=== PATIENT | male | born 1980 | race American Indian/Alaskan Native ===

== ENCOUNTER 2017-05-12 17:19 | Emergency (ER) | payer OTHER ==
[~2017-05-12] VITALS: Ht 182.9 cm; Wt 149.7 kg
[~2017-05-12 17:19] MED LIST: ALEVE220 M1 PO; CYCLOBENZAPRINE10 MG PO; ETODOLAC400 MG PO; EXCEDRIN MIGRA1 EAC2 PO; IBUPROFEN600 MG PO; LANTUS SOL100 UNIT/1 SUB-Q; LANTUS100 UNIT/1 SUB-Q; METFORMIN HCL1000 MG PO; METHYLPREDNISOLO4 M1 PO; NAPROSYN500 MG PO; NEURONTIN100 MG PO; NEURONTIN300 MG PO; NORCO 5-325 TA1 EACH PO; NOVOLOG FL100 UNIT/1 SUB-Q; NOVOLOG100 UNITS/ SUB-Q; PERCOCET 10-321 EACH PO; PERCOCET 5-3251 EACH PO; SULINDAC200 MG PO; ZOFRAN ODT4 MG PO; ZOFRAN4 MG PO
[2017-05-12] MEDS ORDERED: LANTUS SOL100 UNIT/1 SUB-Q (18:59)
== END 2017-05-12 23:41 | disposition home or self-care (01) ==
LOC: ED 17:19
DX: G43.909 Migraine, unspecified, not intractable, without status migrainosus (principal); E11.9 Type 2 diabetes mellitus without complications; I10 Essential (primary) hypertension; E66.9 Obesity, unspecified; Z90.49 Acquired absence of other specified parts of digestive tract; Z90.89 Acquired absence of other organs; Z88.5 Allergy status to narcotic agent; Z79.4 Long term (current) use of insulin
CPT/HCPCS: 96361; 96374; 96375; 99282; J0780; J1885; J2405; J7030

== ENCOUNTER 2017-09-29 18:34 | Emergency (ER) | payer OTHER ==
[~2017-09-29] VITALS: Ht 182.9 cm; Wt 149.7 kg
[2017-09-29] MEDS ORDERED: AUGMENTIN 875-1 EACH PO (19:44)
[2017-09-29] MEDS ORDERED: NORCO 5-325 TA1 EACH PO (19:44)
== END 2017-09-29 20:01 | disposition home or self-care (01) ==
LOC: ED 18:34
DX: L02.31 Cutaneous abscess of buttock (principal); I10 Essential (primary) hypertension; E11.9 Type 2 diabetes mellitus without complications; E66.9 Obesity, unspecified; Z88.5 Allergy status to narcotic agent; Z79.4 Long term (current) use of insulin
CPT/HCPCS: 99283

== ENCOUNTER 2020-03-16 19:48 | Emergency (ER) | payer OTHER ==
[~2020-03-16] VITALS: Ht 182.9 cm; Wt 149.7 kg
--- OUTSIDE RECORDS SUMMARY | ~2020-03-16 | XMS | Encounter Summary ---
Demographics + + + | Address | [address] | | | [place] [address] | + + + | Home Phone | | + + + | Preferred Language | Unknown | + + + | Marital Status | Unknown | + + + | Nondenominational Affiliation | Unknown | + + + | Race | or | + + + | Ethnic Group | Not or | + + + Author + + + | Author | [facility] | | | and [place] | + + + | Organization | [facility] | | | and [place] | + + + | Address | Unknown | + + + | Phone | Unavailable | + + + Support + + +---------+ + | Name | Relationship | Address | Phone | + + +---------+ + | Laura Randhawa | ECON | Unknown | | + + +---------+ + Care Team Providers + +------+ + | Care Manager Database Name | Role | Phone | + +------+ + | Chas Rizvi PA-C | PCP | | + +------+ + Reason for Visit + +--------+ + | Reason | Onset | Comments | | | Date | | + +--------+ + | Referral | 03/08/ | | | | 2019 | | + +--------+ + Encounter Details +--------+ + + + + | Date | Type | Department | Care Team | Description | +--------+ + + + + | 03/08/ | Telephone | [facility] | Lavon Pack MD | Referral | | 2019 | | OTOLARYNGOLOGY 301 | [address] [facility] | | | | | [address] [facility] [address] | [address] [place], [place] | | | | | [place], [place] | [address] | | | | | [address] | | | | | | [phone] | | | +--------+ + + + + Social History + +-------+ +--------+ + | Tobacco Use | Types | Packs/Day | Years | Date | | | | | Used | | + +-------+ +--------+ + | Former Smoker | | | | Quit: 01/05/2017 | + +-------+ +--------+ + + +---+---+---+ | Smokeless Tobacco: | | | | | Never Used | | | | + +---+---+---+ + + +---------+ + | Alcohol Use | Drinks/Week | oz/Week | Comments | + + +---------+ + | No | | | | + + +---------+ + + + + | Sex Assigned at | Date Recorded | | | | + + + | Not on file | | + + + documented as of this encounter Miscellaneous Notes Telephone Encounter - Lexie Willard - 03/30/2019 11:38 AM PDTReceived auth# [id number] 121 valid for DOS 04/08/19 Sara. Closing encounter. elephone Encounter - Reyna Nguyen - 03/23/2019 11:45 AM PDT Jefryk called back, asked for Dr. Pack's office note DOS 03/08/19; I printed this out an d faxed it to [phone] signed by Reyna Nguyen at 03/23/2019 11:47 AM P DTTelephone Encounter - Sherif Shipman - 03/23/2019 11:13 AM PDTSecond Attempt: LVM with Corrine partida from to inform DOS 04/08/[address] Pack ENT. Will need an updated referral from p and authorization for the visit. 1 1:16 AM PDTTelephone Encounter - Sherif Shipman - 03/08/2019 2:32 PM PDTFirst Attempt: LVM with Fuad notifying of DOS 04/08/19 and that will need an update referral/request a [facility]. documented in this e ncounter Plan of Treatment Not on filedocumented as of this encounter Visit Diagnoses Not on filedocumented in this encounter"
--- OUTSIDE RECORDS SUMMARY | ~2020-03-16 | XMS | Encounter Summary ---
Demographics + + + | Address | [address] | | | [place] [address] | + + + | Home Phone | | + + + | Preferred Language | Unknown | + + + | Marital Status | Unknown | + + + | Restorationism Affiliation | Unknown | + + + | Race | or | + + + | Ethnic Group | Not or | + + + Author + + + | Author | [facility] | | | and [place] | + + + | Organization | [facility] | | | and [...] Team Providers + +------+ + | Care Engraver Optical Frames Name | Role | Phone | + +------+ + | Chas Rizvi PA-C | PCP | | + +------+ + Reason for Visit + + + | Reason | Comments | + + + | New Patient | neck swelling,been going on for about a month,pain and discomfort | | | | + + + Evaluate & Treat (Routine) +--------+--------+ + + + + | Status | Reason | Specialty | Diagnoses / | Referred By | Referred To | | | | | Procedures | Contact | Contact | +--------+--------+ + + + + | Closed | | Otolaryngolog | Diagnoses | Nayeli, | Lavon Pack | | | | y | neck | Yessica Haney, | MD [place] [address] | | | | | swelling | [place] [address] | [address] | | | | | | | [place] [address] | | | | | | [address] | [place] | | | | | | [address] | [address] Phone: | | | | | | [place], | [phone] | | | | | | [place] [address] | Fax: | | | | | | Phone: | [phone] | | | | | | [phone] | | | | | | | Fax: | | | | | | | [phone] | | +--------+--------+ + + + + Encounter Details +--------+---------+ + + + | Date | Type | Department | Care Team | Description | +--------+---------+ + + + | 03/08/ | Office | [facility] | Lavon Pack MD | Conversion disorder | | 2019 | Visit | OTOLARYNGOLOGY [address] | [address] [place] [address] | (Primary Dx) | | | | [address] [facility] [address] | [address] [place] | | | | | [place] | [address] | | | | | [address] | | | | | | [phone] | | | +--------+---------+ + + + Social History + +-------+ [...] + + documented as of this encounter Last Filed Vital Signs + + + + + | Vital Sign | Reading | Time Taken | Comments | + + + + + | Blood Pressure | - | - | | + + + + + | Pulse | 86 | 03/08/2019 1:28 PM | | | | | PDT | | + + + + + | Temperature | - | - | | + + + + + | Respiratory Rate | 16 | 03/08/2019 1:28 PM | | | | | PDT | | + + + + + | Oxygen Saturation | 99% | 03/08/2019 1:28 PM | | | | | PDT | | + + + + + | Inhaled Oxygen | - | - | | | Concentration | | | | + + + + + | Weight | 148.8 kg (328 lb) | 03/08/2019 1:28 PM | | | | | PDT | | + + + + + | Height | 185.4 cm (6' 1") | 03/08/2019 1:28 PM | | | | | PDT | | + + + + + | Body Mass Index | 43.27 | 03/08/2019 1:28 PM | | | | | PDT | | + + + + + documented in this encounter Progress Notes Lavon Pack MD - 03/08/2019 1:30 PM PDTPatient comes in because she's had problems with a tightness in the throat area for about a month. At times will be less of a problem that initially was very tight for about a week. The patient has had a CT scan through the neck a johnnie. He's not noted any change in his voice. He does occasionally gets some coughing limit s bothering him a lot and he notes that in the morning hours it often seems to be more aggra vated. He's had no change in the ability of food to go down but occasionally with the swall owing he'll do some coughing. He also indicates that when he gets severe coughing that occa sionally seen a little speck of blood with a bad cough. Examination: Patient is an alert 40-year-old patient who is communicating well on his voice quality is good. Skin of the face nose and ears all appeared to be smooth and healthy. Ea r canals are open and clean and drums are clear. No middle ear fluid or disease noted. The nasal passage he has a mild septal deviation towards the left. There is good space on the right-hand side. No mass or lesion seen on either side. The right side of the nose was the n sprayed well with some Aidan-Synephrine and topical Xylocaine. In the oral cavity no mass o r lesions are noted. In the oropharynx he's had a uvulopalatopharyngoplasty and no mass or lesions are noted. Tongue and soft palate are smooth the moves symmetrically. Neck was tho roughly examined and there is no mass or lymphadenopathy palpated. Parotid submandibular an d thyroid gland areas all felt smooth. He does have a fairly large neck. He moves his neck without any pain noted. Special procedure: The fiberoptic scope was then used to look through the right nasal passa ge. In this passage and in the nasopharyngeal area no mass or lesions are noted. Rosenmull er's fosses are open and clear and the eustachian tube openings are normal. Stereo lateral pharyngeal ding are smooth. Base of the tongue vallecula and epiglottis is no mass or lesi on or thrush noted. In the vocal cord area is very smooth and moves symmetrically. There w as no swelling over the arytenoids and appear form sinuses are open and clear. Patient has a very normal-appearing hypopharyngeal and laryngeal examination. The CT scan from [facility] was reviewed along with the radiologist reading. No mass or lesions were not ed to account for the pressure in the throat area. Impression: Conversion disorder. Plan: Patient is given a prescription for Xanax 0.25 mg to take a half a tablet in the morn ing and mid-day and a full tablet at bedtime. He will be re-seen back again in 1 month's ti me. documented in this en counter Plan of Treatment Not on filedocumented as of this encounter Visit Diagnoses + + | Diagnosis | + + | Conversion disorder - Primary | + + documented in this encounter
--- OUTSIDE RECORDS SUMMARY | ~2020-03-16 | XMS | Encounter Summary ---
Demographics + + + | Address | [address] | | | [place] [address] | + + + | Home Phone | | + + + | Preferred Language | Unknown | + + + | Marital Status | Unknown | + + + | Voodoo Affiliation | Unknown | + + + | Race | or | + + + | Ethnic Group | Not or | + + + Author + + + | Author | [facility] | | | and [place] | + + + | Organization | [facility] | | | [...] Team Providers + +------+ + | Care Card Hanger Name | Role | Phone | + +------+ + PCP | Unavailable | + +------+ + Encounter Details +--------+ + + + + | Date | Type | Department | Care Team | Description | +--------+ + + + + | 02/27/ | Hospital | [facility] | | | | 2010 | Encounter | [facility] | | | | | | [address] [address] | | | | | | [place] | | | | | | [phone] | | | | | | [phone] | | | +--------+ + + + + Social History + +-------+ +--------+------+ | Tobacco Use | Types | Packs/Day | Years | Date | | | | | Used | | + +-------+ +--------+------+ | Never Assessed | | | | | + +-------+ +--------+------+ + + + | Sex Assigned at | Date Recorded | | | | + + + | Not on file | | + + + documented as of this encounter ED Notes Zane Zacarias MD - 02/27/2011 6:24 PM PDTDATE: 02/27/2011 CHIEF COMPLAINT: Shortness of breath. HISTORY OF PRESENT ILLNESS: The patient is a 30-year-old complaining of shortness of breat h. This hartmann s been ongoing for the last 24 hours, but he has had previous episodes intermitt ently for the past 5 years where he developed some midsternal chest pain with it. He has be en lightheaded, had some near-s yncope type symptoms. He has had generalized fatigue. He hartmann s not been feeling well. He has had a ani le cough but no wheezing. He has not had pleurit ic pain. He has not had hemoptysis, hematemesis. No a bdominal pain. No specific weakness b ut has had generalized weakness. He was seen at [facility], had an evaluation. Was seen in [place] emergency department, had an evaluation, and then came u p here for furt her evaluation, as they did not have a satisfying diagnosis for him. He has not had ni ght sweats. He has not had any weight loss. He has been able to eat and drink. He has not been a nxiou s, no panic. PAST MEDICAL HISTORY: History of pneumonia, history of pericarditis. He has had a cholecys tectomy, t onsillectomy, sinus surgery, diabetes. ALLERGIES: MORPHINE. MEDICATIONS: None. SOCIAL HISTORY: He occasionally smokes. REVIEW OF SYSTEMS: As per HPI. Other systems negative. PHYSICAL EXAM VITAL SIGNS: He is afebrile. Respiratory rate 28, heart rate 88, BP 149/79, O2 saturation 99%. GENERAL: He is alert, oriented. Appears nontoxic. HEENT: Normocephalic, atraumatic. Mucous membranes moist. Oropharynx clear. NECK: Without any meningismus. CARDIOVASCULAR: Regular rate. No murmur, rub, or gallop. PULMONARY: Clear to auscultation. No wheeze, rhonchi, tachypnea, or respiratory distress o n my exami nation. ABDOMEN: Soft and nontender. NEUROLOGIC: Grossly intact. No focal deficit. EMERGENCY DEPARTMENT COURSE: We did go ahead and do a troponin here, which was negative. A 12-lead E KG tracing, normal sinus rhythm, 83 beats per minute, no acute abnormality. He r eceived Zofran, as he developed some nausea here. They were concerned about a possible PE. We did a CT scan of the chest w ith IV contrast, did not reveal acute PE, maybe some medias tinal lymphadenopathy, although mild accor ding to the report. The patient had an extensive evaluation done at [place]. I reviewed those labs, including BNP, electrolytes, CBC, and did not appear to have acute abnormality on that. His 12-lead EKG tracing did not change. At this point, it is unclear the etiology of this. He may have some pulmo nary hypertension versus possible other cardiac cause, although his BNP was [facility] at the [facility], making this less likely a source at this point. I do think he needs to continue to f oll ow up. They did discuss the possibility of an echocardiogram, which seems like a reason able next step given his symptoms here. Otherwise, continued observation. He is not hypoxic , not in respiratory dis tress currently. DIAGNOSES 1. DYSPNEA. 2. NAUSEA. DISPOSITION: Patient discharged home. Rest and fluids. Follow up with his family doctor as planned. Return for worsening symptoms, other complaints. DICTATED BY: Zane Zacarias MD Emergency Medicine JOB #: [id number] EXT JOB #:[id number] <Electronicall y Signed by Zane Zacarias MD> 02/28/11 1602 documented in this encounter Plan of Treatment Not on filedocumented as of this encounter Procedures + +--------+ + + + | Procedure Name | Priori | Date/Time | Associated Diagnosis | Comments | | | ty | | | | + +--------+ + + + | TROPONIN I | Routin | 02/27/2011 | | Results for this | | | e | 7:30 PM | | procedure are in the | | | | PDT | | results section. | + +--------+ + + + | CT CHEST W CONTRAST | | 02/27/2011 | | Results for this | | | | 6:24 PM | | procedure are in the | | | | PDT | | results section. | + +--------+ + + + documented in this encounter Results Troponin I (02/27/2011 7:30 PM PDT) + + + + + + | Component | Value | Ref Range | Performed | Pathologist | | | | | At | Signature | + + + + + + | Troponin I | 0.01Comment: Reference | <0.10 ng/mL | [facility] | | | | Ranges: | | [facility] | | | | 0.00-0.09 = NORMAL | | MEDICAL | | | | 0.10-0.50 | | CENTER - | | | | = | | LABORATORY | | | | INDETERMINATE-SUSPICIOUS | | | | | | FOR | | | | | | | | | | | | NON-INFARCT | | | | | | MYOCARDIAL INJURY | | | | | | >0.50 = | | | | | | CONSISTENT WITH | | | | | | MYOCARDIAL INFARCT | | | | | | Results in the | | | | | | Indeterminate range can | | | | | | reflect a pre-infarct | | | | | | acute coronary | | | | | | syndrome, but can also | | | | | | reflect myocardial | | | | | | necrosis or injury | | | | | | that is not due to | | | | | | coronary artery | | | | | | disease. Some of these | | | | | | causes are sepsis, | | | | | | hypocolemia, atrial | | | | | | fibrillation, heart | | | | | | failure, pulmonary | | | | | | embolism, myocarditis, | | | | | | myocardial contusion, | | | | | | and renal failure. | | | | | | Testing performed on | | | | | | the [employer] [place] | | | | | | Access Analyzer. | | | | + + + + + + + + | Specimen | + + | | + + + + + + + | Performing | Address | City/State/Zipcode | Phone Number | | Organization | | | | + + + + + | [facility] | [address] | [place], [place] | [phone] | | [facility] | | [address] | | | - LABORATORY | | | | + + + + + | [facility] | [address] | [place], [place] | | | [facility] | | [address], [facility] | | | - LABORATORY | | | | + + + + + CT Chest w Contrast (02/27/2011 6:24 PM PDT) + + | Specimen | + + | | + + + + + | Narrative | Performed At | + + + | [facility] Diagnostic Imaging Department | [facility] | | [address], [facility] | [facility] | | CHEST CT WITH CONTRAST, 1930 | DIAG IMG | | HOURS, 02/27/2011 CLINICAL HISTORY: PULMONARY EMBOLISM. | | | FINDINGS: There is suboptimal contrast opacification of the | | | pulmonary arterial tree secondary to mis timing of the bolus. There | | | are no definite filling defects within the large or medium-sized | | | pulmonary vessels. Small emboli could be missed. There are a | | | few scattered shotty mediastinal lymph nodes, none reaching pathologic | | | size criteria. The re is no pleural or pericardial effusion. The | | | pulmonary parenchyma is clear. Partially imaged upper a bdominal | | | structures are unremarkable. IMPRESSION: 1. TECHNICALLY | | | SUBOPTIMAL STUDY, WITH NO DEFINITE FINDING OF SIGNIFICANT PULMONARY | | | THROMBOEMBOLISM. 2. NONSPECIFIC SHOTTY MEDIASTINAL LYMPH NODES. | | | Dictated Date/Time: 02/28/2011 13:07 Transcribed Date/Time: | | | 02/28/2011 14:04 Coding Tech: <Electronically Signed | | | by Andrez Adair MD> 02/28/111925 | | + + + + + | Procedure Note | + + | Curtis, Rad Conversion - 09/03/2013 3:31 PM [facility] | | Diagnostic Imaging Department [address] [facility] | | CHEST CT WITH CONTRAST, 1930 HOURS, 02/27/2011 CLINICAL | | HISTORY: PULMONARY EMBOLISM. FINDINGS: There is suboptimal contrast opacification of | | the pulmonary arterial tree secondary to mistiming of the bolus. There are no definite | | filling defects within the large or medium-sized pulmonary vessels. Small emboli could | | be missed. There are a few scattered shotty mediastinal lymph nodes, none reaching | | pathologic size criteria. There is no pleural or pericardial effusion. The pulmonary | | parenchyma is clear. Partially imaged upper abdominal structures are unremarkable. | | IMPRESSION: 1. TECHNICALLY SUBOPTIMAL STUDY, WITH NO DEFINITE FINDING OF SIGNIFICANT | | PULMONARY THROMBOEMBOLISM. 2. NONSPECIFIC SHOTTY MEDIASTINAL LYMPH NODES. Dictated | | Date/Time: 02/28/2011 13:07Transcribed Date/Time: 02/28/2011 14:04Transcriptionist: | | <Electronically Signed by Andrez Adair MD> 02/28/111925 | | | |There are a few scattered shotty mediastinal lymph nodes, none reaching pathologic size cri teria. The | |re is no pleural or pericardial effusion. The pulmonary parenchyma is clear. Partially imag ed upper a | |bdominal structures are unremarkable. | | | |IMPRESSION: | |1. TECHNICALLY SUBOPTIMAL STUDY, WITH NO DEFINITE FINDING OF SIGNIFICANT PULMONARY THROMBOE MBOLISM. | | | |2. NONSPECIFIC SHOTTY MEDIASTINAL LYMPH NODES. | | | |Dictated Date/Time: 02/28/2011 13:07 | |Transcribed Date/Time: 02/28/2011 14:04 | |Coding Tech: | |<Electronically Signed by Andrez Adair MD> 02/28/111925 | + + + +---------+ + + | Performing | Address | City/State/Zipcode | Phone Number | | Organization | | | | + +---------+ + + | [place] | | | | | [employer] [facility] | | | | + +---------+ + + documented in this encounter Visit Diagnoses Not on filedocumented in this encounter"
--- OUTSIDE RECORDS SUMMARY | ~2020-03-16 | XMS | Encounter Summary ---
Demographics + + + | Address | [address] | | | [place] [address] | + + + | Home Phone [...] Author + + + | Author | [facility] | | | and [place] | + + + | Organization | [facility] | | | [...] Team Providers + +------+ + | Care Director Patient Financial Services Name | Role | Phone | + +------+ + | Chas Rizvi PA-C | PCP | | + +------+ + Reason for Referral Diagnostic/Screening (Routine) +--------+--------+ + + + + | Status | Reason | Specialty | Diagnoses / | Referred By | Referred To | | | | | Procedures | Contact | Contact | +--------+--------+ + + + + | Closed | | Radiology | Diagnoses | Maxood, | [facility] | | | | | Chest pain, | Hubert | Medicine | | | | | unspecified | MD Rajesh | [address] | | | | | type | [address] | [place], | | | | | Procedures | [place] | [place] | | | | | [place] [facility] | [place], [place] | [address] | | | | | Stress Test | [address] | Phone: | | | | | (Vasodilator | Phone: | [phone] | | | | | ) | [phone] | Fax: | | | | | | Fax: | [phone] | | | | | | [phone] | | +--------+--------+ + + + + Reason for Visit + + + | Reason | Comments | + + + | Follow-up | | + + + Evaluate & Treat (Routine) +--------+--------+ + + + + | Status | Reason | Specialty | Diagnoses / | Referred By | Referred To | | | | | Procedures | Contact | Contact | +--------+--------+ + + + + | Closed | | Cardiology | Diagnoses | Nayeli, | Breonna, | | | | | Chest pain, | Yessica Haney, | Hubert | | | | | unspecified | PA-C [address] | MD Rajesh | | | | | Wheezing | | [address] | | | | | Procedures | [address] | [place] | | | | | [address] | [address] | [place], [place] | | | | | | [place], | [address] Phone: | | | | | | [place] [address] | [phone] | | | | | | Phone: | Fax: | | | | | | [phone] | [phone] | | | | | | Fax: | | | | | | | [phone] | | +--------+--------+ + + + + Encounter Details +--------+---------+ + + + | Date | Type | Department | Care Team | Description | +--------+---------+ + + + | 01/05/ | Office | [facility] | Hubert Light | Chest pain, | | 2018 | Visit | CARDIOLOGY [address] | MD Rajesh [address] | unspecified type | | | | [address] [place], | [address] [place] | (Primary Dx); | | | | [place] [address] | [place] [address] | Hypertension, | | | | [phone] | [phone] | unspecified type; | | | | | | Palpitations; SOB | | | | | | (shortness of | | | | | | breath); Ventricular | | | | | | hypertrophy; | | | | | | Cardiomegaly | +--------+---------+ + + + Social History [...] + + + | Blood Pressure | 132/90 | 01/05/2018 1:27 PM | | | | | PDT | | + + + + + | Pulse | 88 | 01/05/2018 1:27 PM | | | | | PDT | | + + + + + | Temperature | - | - | | + + + + + | Respiratory Rate | 18 | 01/05/2018 1:27 PM | | | | | PDT | | + + + + + | Oxygen Saturation | - | - | | + + + + + | Inhaled Oxygen | - | - | | | Concentration | | | | + + + + + | Weight | 149.5 kg (329 lb 9.4 | 01/05/2018 1:27 PM | | | | oz) | PDT | | + + + + + | Height | 185.4 cm (6' 1") | 01/05/2018 1:27 PM | | | | | PDT | | + + + + + | Body Mass Index | 43.48 | 01/05/2018 1:27 PM | | | | | PDT | | + + + + + documented in this encounter Patient Instructions Patient Instructions Carolyn Marina RN - 01/05/2018 1:30 PM PDT Artie/Shruthi Myojuvenal Date: Check-in Time: Where to Check In: Instructions 1. Nothing to eat or drink anything 6 hours prior to Persantine/Lexiscan 2. DO NOT drink caffeine 12 hours prior to the test. 3. You can take all medications the morning of the test with a small sip of water. 4. Please bring a list of your current medications with you. Resting Portion of test: Date: Check-in Time: Where to Check In: Follow up appointment: 2-3 months Provider: Daniel Light MD Date: Check-In Time: documented in this encounter Progress Notes Hubert Light MD - 01/05/2018 1:30 PM PDTFormatting of this note might be differe nt from the original. PATIENT NAME: Cesar Randhawa : 1980: AGE: 37 y.o. REFERRED BY: Yessica Tyler PRIMARY CARE: Chas Rizvi PA-C CARDIOLOGY OFFICE VISIT Date of Service: 01/05/18 HISTORY OF PRESENT ILLNESS: Cesar Randhawa is a 37 y.o. male with a history of Diabetes an atypical chest pain. He is being seen today for further consultation. He is referred by Yessica Tyler for further evaluation after recent complaints of aty pical chest discomfort, described as sharp without clear exertional correlation. He has had similar symptoms in the past and previously underwent a stress perfusion imaging study which was low risk.he only takesinsulin 4 diabetes which has been poorly controlled.he describes not tolerating metformin in the past given onset of dizziness/lightheadedness. He has not b een on aspirin therapy, statin therapy, or MINH inhibitor therapy. He denies problems such as orthopnea, PND, or lower extremity edema, or any palpitations, l ightheadedness, or syncope. He has had no constitutional symptoms. MEDICAL, SURGICAL, AND PERSONAL HISTORY Past Medical History: Diagnosis Date Allergic rhinitis Asthma Cardiomegaly Chest pain Chronic low back pain Diplopia High blood pressure Hip pain Malaise and fatigue Morbid obesity (HCC) Palpitations SOB (shortness of breath) Type 2 diabetes mellitus (HCC) Ventricular hypertrophy Vitamin D deficiency Past Surgical History: Procedure Laterality Date APPENDECTOMY CHOLECYSTECTOMY NASAL SINUS SURGERY Family History Problem Relation Age of Onset Diabetes Mother Hypertension Mother Family Status Relation Status Mother Alive Father Alive Social History Social History Marital status: Unknown Spouse name: N/A Number of children: N/A Years of education: N/A Social History Main Topics Smoking status: Former Smoker Quit date: 01/05/2017 Smokeless tobacco: Never Used Alcohol use No Drug use: Yes Types: Marijuana Sexual activity: Not Asked Other Topics Concern None Social History Narrative None CURRENT MEDICATIONS Current Outpatient Prescriptions Medication Sig Dispense Refill insulin glargine (LANTUS SOLOSTAR) 100 units/mL injection (pen) Inject 70 Units under t he skin Daily. No current facility-administered medications for this visit. ALLERGIES Allergies Allergen Reactions Morphine Itching Anesthetics, Amide NOVACAINE Iodinated Diagnostic Agents Nausea And Vomiting ROS I have reviewed the Review of Systems form dated today and scanned into the media tab. OBJECTIVE: PHYSICAL EXAM BP 132/90 | Pulse 88 | Resp 18 | Ht 1.854 m (6' 1") | Wt (!) 149.5 kg (329 lb 9.4 oz) | BMI 43.48 kg/m Physical Exam Constitutional: He is oriented to person, place, and time. He appears well-developed and we ll-nourished. HENT: Head: Normocephalic. Eyes: No scleral icterus. Neck: Normal carotid pulses and no JVD present. Carotid bruit is not present. Cardiovascular: Normal rate, regular rhythm, S1 normal, S2 normal, normal heart sounds, int act distal pulses and normal pulses. PMI is not displaced. Exam reveals no gallop and no m idsystolic click. No murmur heard. Pulses: Carotid pulses are 2+ on the right side, and 2+ on the left side. Femoral pulses are 2+ on the right side, and 2+ on the left side. Dorsalis pedis pulses are 2+ on the right side, and 2+ on the left side. Posterior tibial pulses are 2+ on the right side, and 2+ on the left side. Pulmonary/Chest: Effort normal and breath sounds normal. No accessory muscle usage. No resp iratory distress. He has no wheezes. He has no rhonchi. He has no rales. Abdominal: Soft. Normal aorta and bowel sounds are normal. He exhibits no abdominal bruit. There is no hepatosplenomegaly. There is no tenderness. Obese. Musculoskeletal: He exhibits no edema. Neurological: He is alert and oriented to person, place, and time. Gait normal. Skin: Skin is warm and dry. No cyanosis. Nails show no clubbing. Psychiatric: He has a normal mood and affect. His mood appears not anxious. He does not exh ibit a depressed mood. Vitals reviewed. ECG: Reviewed by me today notable for normal sinus rhythm, heart rate 87. LAB RESULTS: LIPID Lab Results Component Value Date LDLEX 61.8 10/01/2017 HDLEX 40 10/01/2017 TRIGEX 237 (A) 10/01/2017 CHOLEX 149 10/01/2017 CHEMISTRY No results found for: GLU, NA, K, CL, CO2, CALCIUM, ALKPHOS, AST, ALT, BILITOT, CREA, BUN, EGFR, EGFREX, CREEX HEMATOLOGY No results found for: WBC, HGB, HCT, PLT, HGBEX BNP No results found for: BNP A1C 10/01/2017: 9.8 I reviewed records from PCP for office visit on 11/05/17 as well as 11/29/13 as well as [facility] emergency department visit 02/27/11. Nuclear stress perfusion imaging study December 2013 results reviewed by me with the patient to day notable for no perfusion abnormalities, low risk study. ASSESSMENT: 1. Atypical chest pain - Patient's symptoms are certainly atypical for coronary ischemia . However, given his history of poorly controlled diabetes, I will have him undergo a repea t pharmacologic stress perfusion imaging study. He would also benefit from empiric therapy with low-dose aspirin given his history of diabetes. 2. Diabetes mellitus - Patient demonstrates very poor control and would benefit from add itional therapy with an oral hypoglycemic agent in addition to consideration of therapy with an MINH inhibitor versus ARB. As stated above, he should also be treated with aspirin empir ically. PLAN: 1. Stress perfusion imaging study. 2. Additional therapy with aspirin. 3. Consider additional therapy with oral hypoglycemic agent and MINH inhibitor versus ARB. 4. Lifestyle and dietary modification. 5. Follow-up visit in a few weeks. Portions of this report were transcribed using voice recognition software. Every effort wa s made to ensure accuracy; however, inadvertent computerized wireline supervisor errors may be pre sent. Electronically signed by: Raymond Light MD PhD FACC 01/05/2018 documented in t his encounter Plan of Treatment + + +--------+ + + | Name | Type | Priori | Associated Diagnoses | Order Schedule | | | | ty | | | + + +--------+ + + | [place] Nuclear Stress | Cardiac | Routin | Chest Pain, | Expected: | | Test (Vasodilator) | Nuclear | e | Unspecified Type | 01/05/2018, Expires: | | | Medicine | | | 01/05/2019 | + + +--------+ + + documented as of this encounter Procedures + +--------+ + + + | Procedure Name | Priori | Date/Time | Associated Diagnosis | Comments | | | ty | | | | + +--------+ + + + | ECG 12 LEAD | Routin | 01/06/2018 | Chest pain, | Results for this | | | e | 6:29 PM | unspecified type | procedure are in the | | | | PDT | Hypertension, | results section. | | | | | unspecified type | | | | | | Palpitations SOB | | | | | | (shortness of | | | | | | breath) Ventricular | | | | | | hypertrophy | | | | | | Cardiomegaly | | + +--------+ + + + | EXTERNAL LAB: | Routin | 10/01/2017 | | Results for this | | TRIGLYCERIDES | e | | | procedure are in the | | | | | | results section. | + +--------+ + + + | EXTERNAL LAB: | Routin | 10/01/2017 | | Results for this | | CHOLESTEROL, HDL | e | | | procedure are in the | | | | | | results section. | + +--------+ + + + | EXTERNAL LAB: | Routin | 10/01/2017 | | Results for this | | CHOLESTEROL, TOTAL | e | | | procedure are in the | | | | | | results section. | + +--------+ + + + | EXTERNAL LAB: | Routin | 10/01/2017 | | Results for this | | CHOLESTEROL, LDL | e | | | procedure are in the | | | | | | results section. | + +--------+ + + + | HEMOGLOBIN A1C | Routin | 10/01/2017 | | Results for this | | | e | | | procedure are in the | | | | | | results section. | + +--------+ + + + documented in this encounter Results ECG 12 lead (01/06/2018 6:29 PM PDT) + + + + + + | Component | Value | Ref Range | Performed | Pathologist | | | | | At | Signature | + + + + + + | VENTRICULAR | 87 | BPM | [facility] | | | RATE EKG | | | | | + + + + + + | ATRIAL RATE | 87 | BPM | [facility] | | + + + + + + | P-R | 142 | ms | [facility] | | | INTERVAL | | | | | + + + + + + | QRS | 98 | ms | [facility] | | | DURATION | | | | | + + + + + + | Q-T | 356 | ms | [facility] | | | INTERVAL | | | | | + + + + + + | Q-T | 428 | ms | [facility] | | | INTERVAL | | | | | | (CORRECTED) | | | | | + + + + + + | P WAVE AXIS | 25 | degrees | [facility] | | + + + + + + | QRS AXIS | 74 | degrees | [facility] | | + + + + + + | T AXIS | 12 | degrees | [facility] | | + + + + + + | INTERPRETAT | Normal sinus | | [facility] | | | ION TEXT | rhythmPossible Inferior | | | | | | infarct , age | | | | | | undeterminedAbnormal | | | | | | ECGNo previous ECGs | | | | | | availableConfirmed by | | | | | | RAJESH LIGHT MD | | | | | | ([id number]) on 01/06/2018 | | | | | | 6:29:46 PM | | | | + + + + + + + + | Specimen | + + | | + + + + + | Narrative | Performed At | + + + | | | + + + + +---------+ + + | Performing | Address | City/State/Zipcode | Phone Number | | Organization | | | | + +---------+ + + | [facility] | | | | + +---------+ + + Hemoglobin A1C (10/01/2017) + +-------+ + + + | Component | Value | Ref Range | Performed | Pathologist | | | | | At | Signature | + +-------+ + + + | Hemoglobin | 9.8 | % | | | | A1c | | | | | + +-------+ + + + + + | Specimen | + + | Blood | + + External Lab: Triglycerides (10/01/2017) + +---------+ + + + | Component | Value | Ref Range | Performed | Pathologist | | | | | At | Signature | + +---------+ + + + | Triglycerid | 237 (A) | 150 | | | | es, | | | | | | External | | | | | + +---------+ + + + + + | Specimen | + + | Blood | + + External Lab: Cholesterol, HDL (10/01/2017) + +-------+ + + + | Component | Value | Ref Range | Performed | Pathologist | | | | | At | Signature | + +-------+ + + + | HDL | 40 | 40 mg/dl | | | | Cholesterol | | | | | | , External | | | | | + +-------+ + + + + + | Specimen | + + | Blood | + + External Lab: Cholesterol, Total (10/01/2017) + +-------+ + + + | Component | Value | Ref Range | Performed | Pathologist | | | | | At | Signature | + +-------+ + + + | Cholesterol | 149 | 200 mg/dl | | | | , Total, | | | | | | External | | | | | + +-------+ + + + + + | Specimen | + + | Blood | + + External Lab: Cholesterol, LDL (10/01/2017) + +-------+ + + + | Component | Value | Ref Range | Performed | Pathologist | | | | | At | Signature | + +-------+ + + + | LDL | 61.8 | 100 | | | | Cholesterol | | | | | | , Direct, | | | | | | External | | | | | + +-------+ + + + + + | Specimen | + + | Blood | + + documented in this encounter Visit Diagnoses + + | Diagnosis | + + | Chest pain, unspecified type - Primary | + + | Hypertension, unspecified type | + + | Palpitations | + + | SOB (shortness of breath) Shortness of breath | + + | Ventricular hypertrophy Cardiomegaly | + + | Cardiomegaly | + + documented in this encounter
--- OUTSIDE RECORDS SUMMARY | ~2020-03-16 | XMS | Clinical Summary ---
Demographics + + + | Address | [address] | | | [place] [address] | + + + | Home Phone [...] Author + + + | Author | [facility] | | | and [place] | + + + | Organization | [facility] | | | [...] Team Providers + +------+ + | Care Order Control Clerk Blood Bank Name | Role | Phone | + +------+ + | Chas Rizvi PA-C | PCP | | + +------+ + Allergies + + + + + + | Active Allergy | Reactions | Severity | Noted | Comments | | | | | Date | | + + + + + + | Anesthetics, Amide | | | 01/06/20 | NOVACAINE | | | | | 18 | | + + + + + + | Iodinated Diagnostic | Nausea And Vomiting | | 01/06/20 | | | Agents | | | 18 | | + + + + + + | Morphine | Itching | Medium | 05/19/20 | | | | | | 17 | | + + + + + + Medications + + + +---------+------+------+-------+ | Medication | Sig | Dispensed | Refills | Star | End | Statu | | | | | | t | Date | s | | | | | | Date | | | + + + +---------+------+------+-------+ | insulin glargine | Inject 70 Units | | 0 | | | Activ | | (LANTUS SOLOSTAR) | under the skin | | | | | e | | 100 units/mL | Daily. | | | | | | | injection (pen) | | | | | | | + + + +---------+------+------+-------+ | betamethasone | Apply bid to wet | | 0 | 10/2 | | Activ | | dipropionate 0.05% | skin on affected | | | 3/20 | | e | | cream | areas prn SEVERE | | | 17 | | | | | itching/scaling | | | | | | + + + +---------+------+------+-------+ Active Problems + + + | Problem | Noted Date | + + + | Chest pain | | + + + | SOB (shortness of breath) | | + + + | Ventricular hypertrophy | | + + + | Morbid obesity | | + + + | Asthma | | + + + | High blood pressure | | + + + | Allergic rhinitis | | + + + | Vitamin D deficiency | | + + + | Malaise and fatigue | | + + + | Cardiomegaly | | + + + | Diplopia | | + + + | Chronic low back pain | | + + + | Palpitations | | + + + | Hip pain | | + + + | Type 2 diabetes mellitus | | + + + Immunizations + + + + | Name | Administration Dates | Next Due | + + + + | DTAP, UNSPECIFIED | 03/22/1987, 08/23/1983, 04/23/1983, | | | FORMULATION | 05/10/1982, 02/13/1982 | | + + + + | HEP B, 3 DOSE | 05/24/2016, 05/11/2015, 03/17/2015 | | | (ADULT) | | | + + + + | INFLUENZA PF | 05/11/2015 | | | TRIVALENT(PED/ADOL/A | | | | DULT)NALLELYKT | | | + + + + | INFLUENZA QUADR | 05/31/2014 | | | W/PRES | | | | (PED/ADOL/ADULT) | | | | MULTIDOSE | | | + + + + | INFLUENZA, | 04/22/2011 | | | UNSPECIFIED | | | | FORMULATION | | | + + + + | MMR, 2 DOSE | 04/03/1994, 09/04/1983 | | | (PED/ADULT) | | | + + + + | PNEUMOCOCCAL | 03/13/2011 | | | POLYSACCHARIDE | | | | 23-VALENT (PPSV23) | | | + + + + | POLIO, UNSPECIFIED | 03/22/1987, 08/23/1983, 05/10/1982, | | | FORMULATION | 02/13/1982 | | + + + + | TD, UNSPECIFIED | 04/03/1994 | | | FORMULATION | | | + + + + | TDAP, (ADOL/ADULT) | 01/26/2008 | | + + + + Family History + + +------+ + | Medical History | Relation | Name | Comments | + + +------+ + | Diabetes | Mother | | | + + +------+ + | Hypertension | Mother | | | + + +------+ + + +------+--------+ + | Relation | Name | Status | Comments | + +------+--------+ + | Father | | Alive | | + +------+--------+ + | Mother | | Alive | | + +------+--------+ + Social History + +-------+ +--------+ + [...] on file | | + + + Last Filed Vital Signs + + + [...] | | + + + + + Plan of Treatment + + + + + | Health Maintenance | Due Date | Last | Comments | | | | Done | | + + + + + | Hepatitis C | | | | | Screening | 2 | | | + + + + + | Medication | | | | | Management | 2 | | | + + + + + | Diabetic Eye Exam | | | | | | 0 | | | + + + + + | Diabetic Foot Exam | | | | | | 0 | | | + + + + + | Microalbumin | | | | | Screening | 5 | | | + + + + + | Hemoglobin A1c | | 10/02/19 | | | Screening | 8 | 18 | | + + + + + | Vaccine: | | 01/26/20 | | | Dtap/Tdap/Td (7 - | 8 | 08, | | | Td) | | 04/03/19 | | | | | 94, | | | | | 03/22/19 | | | | | 87, | | | | | Addition | | | | | al | | | | | history | | | | | exists | | + + + + + | Med Mgmt: HBA1C | | 10/02/19 | | | | 8 | 18 | | + + + + + | Vaccine: Influenza | | 05/11/20 | | | (#1) | 0 | 15, | | | | | 05/31/20 | | | | | 14, | | | | | 04/22/20 | | | | | 11 | | + + + + + | Vaccine: | Completed | 03/13/20 | | | Pneumococcal 19-64 | | 11 | | + + + + + Results Not on filefrom Last 3 Months Insurance + +--------+ +--------+ +---------+--------+ | Payer | Benefi | Subscriber | Effect | Phone | Address | Type | | | t Plan | ID | olamide | | | | | | / | | Dates | | | | | | Group | | | | | | + +--------+ +--------+ +---------+--------+ | [employer] | MEDICA | [id number] | 03/28/20 | [phone] | | Medica | | | [place] | | 18-Pre | 2 | | id | | | PLUS | | sent | | | | + +--------+ +--------+ +---------+--------+ | [employer] [facility] | IHS | [id number] | 07/28/19 | | | Indemn | | SERVICE | YELLOW | | 13-Pre | | | ity | | | HAWK | | sent | | | | + +--------+ +--------+ +---------+--------+ + +--------+ +--------+ + + | Guarantor Name | Accoun | Relation to | Date | Phone | Billing Address | | | t Type | Patient | of | | | | | | | | | | + +--------+ +--------+ + + | Cesar Randhawa | Person | Self [birth year] | [address] | | | [place] | | 1981 | [phone] | [place] [address] | | | christina | | | 1 (Home) | | + +--------+ +--------+ + + Advance Directives + + + + + | Type | Date Recorded | Patient | Explanation | | | | [employer] | | + + + + + | Power of | | | | | Naturalization Examiner | | | | + + + + + | Advance | | | | | Directive | | | | + + + + +
--- OUTSIDE RECORDS SUMMARY | ~2020-03-16 | XMS | Encounter Summary ---
Demographics + + + | Address | [address] | | | [place] [address] | + + + | Home Phone | | + + + | Preferred Language | Unknown | + + + | Marital Status | Unknown | + + + | Evangelical Affiliation | Unknown | + + + | Race | or | + + + | Ethnic Group | Not or | + + + Author + + + | Author | [facility] | | | and [place] | + + + | Organization | [facility] | | | [...] Team Providers + +------+ + | Care Vice President Of Brand Management Name | Role | Phone | + +------+ + | Chas Rizvi PA-C | PCP | | + +------+ + Encounter Details +--------+ + + + + | Date | Type | Department | Care Team | Description | +--------+ + + + + | 02/18/ | Orders Only | [facility] | Provider, | | | 2019 | | [facility] | [address] | | | | | [address] | [address] | | | | | [address] [place], [place] | [place] [address] | | | | | [address] | | | | | | [phone] | | | +--------+ + + + [...] + + documented as of this encounter Plan of Treatment Not on filedocumented as of this encounter Visit Diagnoses Not on filedocumented in this encounter"
--- OUTSIDE RECORDS SUMMARY | ~2020-03-16 | XMS | Encounter Summary ---
Demographics + + + | Address | [address] | | | [place] [address] | + + + | Home Phone | | + + + | Preferred Language | Unknown | + + + | Marital Status | Unknown | + + + | Pentecostal Affiliation | Unknown | + + + | Race | or | + + + | Ethnic Group | Not or | + + + Author + + + | Author | [facility] | | | and [place] | + + + | Organization | [facility] | | | [...] Team Providers + +------+ + | Care Tank Welder Name | Role | Phone | + +------+ + | Chas Rizvi PA-C | PCP | | + +------+ + Encounter Details +--------+ + + + + | Date | Type | Department | Care Team | Description | +--------+ + + + + | 02/25/ | Imaging | [facility] | Provider, | | | 2019 | Exam | [facility] | [address] | | | | | [address] | [address] | | | | | [address] [facility] | [place] [address] | | | | | [place] [address] | | | | | | [phone] | | | +--------+ + + + [...] + +--------+ + + + | CT SOFT TISSUE NECK | Routin | 02/12/2019 | | Results for this | | W CONTRAST | e | 12:00 AM | | procedure are in the | | | | PDT | | results section. | + +--------+ + + + documented in this encounter Results CT Soft Tissue Neck w Contrast (02/12/2019 12:00 AM PDT) + + | Specimen | + + | | + + + + + | Narrative | Performed At | + + + | External films for comparison only | [facility] | | | | | No results will be in the chart. | | + + + + +---------+ + + | Performing | Address | City/State/Zipcode | Phone Number | | Organization | | | | + +---------+ + + | [facility] | | | | + +---------+ + + documented in this encounter Visit Diagnoses Not on filedocumented in this encounter"
--- OUTSIDE RECORDS SUMMARY | ~2020-03-16 | XMS | Encounter Summary ---
Demographics + + + | Address | [address] | | | [place] [address] | + + + | Home Phone | | + + + | Preferred Language | Unknown | + + + | Marital Status | Unknown | + + + | Episcopal Affiliation | Unknown | + + + | Race | or | + + + | Ethnic Group | Not or | + + + Author + + + | Author | [facility] | | | and [place] | + + + | Organization | [facility] | | | and [...] Team Providers + +------+ + | Care Bodily Injury Adjuster Name | Role | Phone | + +------+ + | Chas Rizvi PA-C | PCP | | + +------+ + Reason for Visit + +--------+ + | Reason | Onset | Comments | | | Date | | + +--------+ + | Appointment | 01/30/ | stress test | | | 2018 | | + +--------+ + Encounter Details +--------+ + + + + | Date | Type | Department | Care Team | Description | +--------+ + + + + | 01/30/ | Telephone | [facility] | Hubert Ravi | Appointment (stress | | 2017 | | CARDIOLOGY [address] | MD Rajesh [address] | test) | | | | [place], | [address] [place] | | | | | [place] [address] | [place] [address] | | | | | [phone] | [phone] | | | | | | | | +--------+ + + + [...] this encounter Miscellaneous Notes Telephone Encounter - Mckenna Gonzalez - 03/03/2018 10:56 AM PDTCalled and Left voicemail to call back and reschedule Stress Test that was no showed on 02/25/18. Patient has appt with Dr. Ravi 03/10/18. rich Webb - Thierno Gladis - 02/05/2018 8:38 AM PDTSpoke to patient to schedule his stress test, epic was not working at the moment so patient asked me to schedule appointment and mail out appointment information. Patient scheduled 02/25/18 for his stress test. Appointm ent information sent. ay Webb - Thierno - 01/30/2018 3:02 PM PDTCalled patient to reschedule no showed stress test from 01/27/18, left voicemail to call back and reschedule before 03/10/[address] Ravi. documen fide in this encounter Plan of Treatment Not on filedocumented as of this encounter Visit Diagnoses Not on filedocumented in this encounter"
--- OUTSIDE RECORDS SUMMARY | ~2020-03-16 | XMS | Encounter Summary ---
Demographics + + + | Address | [address] | | | [place] [address] | + + + | Home Phone | | + + + | Preferred Language | Unknown | + + + | Marital Status | Unknown | + + + | Yarsani Affiliation | Unknown | + + + | Race | or | + + + | Ethnic Group | Not or | + + + Author + + + | Author | [facility] | | | and [place] | + + + | Organization | [facility] | | [...] Team Providers + +------+ + | Care Screen Stretcher Name | Role | Phone | + +------+ + PCP | Unavailable | + +------+ + Encounter Details +--------+ + + + + | Date | Type | Department | Care Team | Description | +--------+ + + + + | 07/29/ | Hospital | [facility] | Rex Mcmanus, | | | 2007 - | Encounter | MED CTR GENERIC IP | MD [address] | | | | | CONV DEPT [address] | [address] [place], | | | 07/30/ | | [place], | [place] [address] | | | 2007 | | [place] [address] | [phone] | | | | | [phone] | | | +--------+ + + + [...]
[~2020-03-16 19:48] MED LIST changes: +AUGMENTIN 875-1 EACH PO
[2020-03-16] MEDS ORDERED: KEFLEX500 MG PO (21:24)
[2020-03-16] MEDS ORDERED: BACTRIM DS TAB1 EACH PO (21:24)
== END 2020-03-16 21:37 | disposition home or self-care (01) ==
LOC: ED 19:48
DX: L03.317 Cellulitis of buttock (principal); E11.9 Type 2 diabetes mellitus without complications; I10 Essential (primary) hypertension; Z88.5 Allergy status to narcotic agent; Z79.4 Long term (current) use of insulin
CPT/HCPCS: 99283; A9270

== ENCOUNTER 2020-08-29 01:42 | Inpatient (IN) | payer OTHER ==
[~2020-08-29 01:42] MED LIST changes: +BACTRIM DS TAB1 EACH PO; +KEFLEX500 MG PO
[2020-08-29] MEDS ORDERED: GLIPIZIDE XL10 MG PO (02:39)
--- NOTE | 2020-08-29 08:39 | NUR ---
PT ARRIVES VIA STRETCHER ABLE TO SELF TRANSFER TO BED. RIGHT FOOT ELEVATED ON PILLOW PT DESCRIBES PAIN 03/06. ORIENTED TO ROOM CALL LIGHT IN REACH.
--- NOTE | 2020-08-29 09:12 | NUR ---
PATIENT IN BED RESTING, RN IN ROOM. RN DID VITALS AND NO I&O'S AT THIS TIME. CALL LIGHT IN REACH. NO FURTHER NEEDS AT THIS TIME.
--- NOTE | 2020-08-29 09:57 | NUR ---
PT MEDICATED FOR PAIN WITH OXY 5 AND TYLENOL. RETURNING TO CHECK ON HIM PT IS ROCKING AND MOANING C/O 10 R FOOT PAIN. ADDITIONAL OXY 5 MG PROVIDED. ABX INFUSING AT THIS TIME EDUCATION R/T MEDICATIONS PROVIDED. PT ENCOURAGED TO ELEVATE LRE ON PILLOWS AND THROUGH BED CONTROLS DISCUSSED REASONS FOR THIS. PT DOES NOT APPPEAR MOTIVATED TO FOLLOW INSTRUCTION. ALLOWS FOOT TO BE ELEVATED BUT PUTS IT BACK ON BED WHEN THIS ALLERGIST/MD IS AWAY.
--- NOTE | 2020-08-29 10:51 | NUR ---
PT APPEARS TO BE RESTING COMFORTABLY AFTER SECOND DOSE OF OXY. ABX INFUSED WITHOUT ISSUE.
--- NOTE | 2020-08-29 10:59 | NUR ---
PT REFUSES P/T STATES IT HURTS TOO BAD WHEN HE TRIES TO GET UP THE BLOOD RUSHES TO HIS FOOT. AGREES HE IS DOING OKAY WHEN LAYING FLAT AND RESTING. WILL CONTINUE ABX AND PAIN MEDS AND HOPE HE CAN TOLERATE ACTIVITY LATER THIS SHIFT.
--- NOTE | 2020-08-29 12:58 | NUR ---
PT SITTING UP IN BED RATES PAIN 6/10, 6 OR 7 BEING ACCEPTABLE TO HIM. AGREES HE FEELS SOMEWHAT BETTER. DENIES NEED OF ANYTHING. IV ALARMING OCCLUDED WHEN ENTERING THE ROOM, REMINDED AND ENCOURAGED PT TO NOTIFY STAFF WHEN THIS HAPPENS ABX ARE INFUSING. UNDERSTANDING VERBALIZED A 2ND TIME
--- NOTE | 2020-08-29 14:20 | NUR ---
PATIENT IN BED, RN AND SIGNAL CIRCUIT DESIGNER IN ROOM. CALL LIGHT IN REACH. NO FURTHER NEEDS AT THIS TIME.
[2020-08-29] MEDS ORDERED: ZESTRIL2.5 MG PO (14:40)
[2020-08-29] MEDS ORDERED: VITAMIN B-121000 MCG PO (14:40)
--- NOTE | 2020-08-29 14:40 | NUR ---
MED REC COMPLETE
--- NOTE | 2020-08-29 15:41 | NUR ---
PT RESTING EYES CLOSED, APPEARS RELAXED AND COMFORTABLE
--- NOTE | 2020-08-29 16:37 | NUR ---
DR ALLEN CALLED ABOUT PT'S NPO STATUS. TELEPHONE ORDER RECIEVED TO LET PT EAT REGULAR DIET BEFORE HE ASSESS HIM.
--- NOTE | 2020-08-29 16:56 | NUR ---
SPOKE TO DR ALLEN'S OFFICE R/T PT NPO STATUS AWAITING MD VISIT. HE STATES PT CAN EAT EVENING MEAL AND ANY DECISIONS R/T POSSIBLE SURGERY WILL BE MADE LATER FOR THE FOLLOWING DAYS. PT ORDERED EVENING MEAL
--- NOTE | 2020-08-29 17:58 | NUR ---
PT HAS SMALL MEAL FOR DINNER DENIES FURTHER NEEDS. AGREES PAIN IS MANAGEABLE. DR ALLEN IN TO SEE HIM NOW
--- NOTE | 2020-08-29 18:03 | NUR ---
Case Management assessment complete. Patient would like to go home and return to his current living situation on discharge. Patient is primary caregiver for his three children who are all under 12 years old, and he helps care for his mother who lives next door to him. Patient is very happy with his care, both here on the medical floor, and in the ED. Patient denies concerns regarding patient care at this time, he feels like the nurses "are taking good care of me", he also adds that he is getting pain medication, it does take a while for it to "kick in", but he feels it is working because he is "falling asleep." Dr. Velez now in room to care for patient.
--- NOTE | 2020-08-29 18:34 | NUR ---
DR ALLEN TREATS AND DRESSES FOOT, WELL TOLERATED
--- NOTE | 2020-08-29 19:20 | NUR ---
SHIFT REPORT FROM NURSE OWEN. PT LAYING IN BED, TALKING ON PHONE. NO APPARENT NEEDS AT THIS TIME. CALL LIGHT WITHIN REACH.
--- NOTE | 2020-08-29 20:00 | NUR ---
CHECKED PATIENT IN THE ROOM. PATIENT TRYING TO BOOST UP IN BED BY HIMSELF. PATIENT STATED "THIS WRAPPED ON MY FOOT CANNOT GUARANTEE STAY ON, IT REALLY HURT, I WANT IT OFF". THIS QUALITY CONTROL SCIENTIST TRIED TO HAVE LEG ELEVATED WITH 2 PILLOWS UNDER AND AN ICE PACK. ICE WATER REFILLED AND DIET SODA PROVIDED.
--- NOTE | 2020-08-29 20:56 | NUR ---
IN ROOM FOR ASSESSMENT, VS/I&OS, MEDS. PT WAS THRASHING IN BED, STATES THAT HIS FOOT IS TOO TIGHTLY WRAPPED AND THROBBING. PT STATES THAT HE DOES NOT "EVEN WEAR SOCKS NORMALLY". RIGHT FOOT UNWRAPPED AND LARGE BANDAID PUT OVER PUNCTURE WOUND. PT BEGAN TO CALM ALTHOUGH STATES THAT THE FOOT FEELS LIKE "BLOOD IS RETURNING AFTER BEING WRAPPED TOO TIGHT". BANDAGE DID NOT APPEAR TO BE TIGHT AND CAPILLARY REFILL WAS <3SEC PRIOR TO REMOVING THE BANDAGE. VSS. VANCO INFUSING. CBG 215 REQUIRING 5UNITS HUMALOG. PT RECEIVED PHONE CALL AND STATES "I NEED TO TAKE THIS". NO FURTHER NEEDS AT THIS TIME. CALL LIGHT WITHIN REACH
--- NOTE | 2020-08-29 20:58 | NUR ---
THIS CUT OFF OPERATOR SCORER AND PRIMARY RN TRIP WERE IN PATIENT'S ROOM. BLOOD SUGAR CHECK DONE. V/S TAKEN AND RECORDED.
--- NOTE | 2020-08-29 22:26 | NUR ---
10MG PRN OXYCODONE PROVIDED FOR 6/10 PAIN IN R FOOT. PT HAS FOOT ELEVATED ON PILLOWS. CEFEPIME HUNG. NO FURTHER NEEDS AT THIS TIME. CALL LIGHT WITHIN REACH.
--- NOTE | 2020-08-30 02:30 | NUR ---
VS AND I&OS PERFORMED. PT REPORTS PAIN 8/10 IN R FOOT. 10MG PO OXYCODONE ADMINISTERED WITH SMALL SIP OF WATER. URINAL EMPTIED. NO FURTHER NEEDS AT THIS TIME. CALL LIGHT WITHIN REACH
--- NOTE | 2020-08-30 04:04 | NUR ---
CALL LIGHT ANSWERED. IV PUMP ALARMING. PT STATES THAT HE WOKE UP "HOT" D/T TOO MANY BLANKETS. PT REPORTS THAT HE NORMALLY "SLEEPS WITH A FAN ON". CLIP ON BEDSIDE FAN PROVIDED. NO FURTHER NEEDS AT THIS TIME
--- NOTE | 2020-08-30 06:00 | NUR ---
IV IN R AC LEAKING. NEW IV PLACED IN LEFT AC. LABS DRAWN AND SENT. VS/ I&OS COMPLETE. PT REPORTS THROBBING PAIN 8/10 IN RT FOOT. 10MG PO OXYCODONE ADMINISTERED AT THIS TIME WITH A SMALL SIP OF WATER. PT REPOSITIONED IN BED. CALL LIGHT WITHIN REACH. NO FURTHER NEEDS AT THIS TIME.
--- NOTE | 2020-08-30 07:37 | NUR ---
this rn received report from roger portillo. pt getting ultrasound done.
--- NOTE | 2020-08-30 08:05 | NUR ---
THIS RN IN PTS ROOM TO GIVE PT INSULIN. PT STATES THAT HIS PAIN IS INCREASED FROM GETTING THE ULTRASOUND. THIS RN TO PROVIDE PT TYLENOL WITH SIPS OF WATER
--- NOTE | 2020-08-30 09:30 | NUR ---
PT STATES THAT HE HAS NAUSEA BUT THAT HE IS NOT WANTING MEDS AT THIS TIME
--- NOTE | 2020-08-30 10:30 | NUR ---
PT STATES THAT HE HAS PAIN, THIS RN TO PROVIDE PT WITH 10MG OF OXY AT THSI TIME.
--- NOTE | 2020-08-30 11:06 | NUR ---
PT IS SITTING UP IN BED. PT STARTED FEELING NAUCEOUS WHEN BLOOD PRESSURE WAS DONE. VITALS AND I&OS ARE DOCUMENTED. CALL LIGHT IS IN REACH. NO FURTHER NEEDS AT THIS TIME.
--- NOTE | 2020-08-30 11:30 | NUR ---
THIS RN IN PTS ROOM TO GIVE PT HIS ZOFRAN DUE TO PT FEELING NAUSEOUS AT THIS TIME.
--- NOTE | 2020-08-30 14:52 | NUR ---
VITALS AND I&OS CHARTED. CALL LIGHT IN REACH
--- NOTE | 2020-08-30 16:51 | NUR ---
Update from Dr. Santos. She has spoken with Dr. Velez and he will see pt this afternoon for wound care.
--- NOTE | 2020-08-30 18:20 | NUR ---
IN PTS ROOM TO ATTEMPT TO DEBRID PTS RIGHT FOOT POSSIBLE ABCESS
--- NOTE | 2020-08-30 18:43 | NUR ---
PATIENT UP IN ROOM, USING URINAL. VITRALS AND I&OS CHARTED. GARBAGE EMPTIED, FRESH ICE WATER PROVIDED. CALL LIGHT AND PERSONAL ITEMS WITHIN REACH
--- NOTE | 2020-08-30 19:05 | NUR ---
REPORT RECEIVED FROM SALUD FLOREZ. PT A+O, RESTING IN BED, STATES NO NEEDS AT THIS TIME. CALL LIGHT IN REACH
--- NOTE | 2020-08-30 21:00 | NUR ---
CALL LIGHT ON, PT REQUESTING URINAL TO BE EMPTIED, VITALS AND I&Os DONE AT THIS TIME, WATER REFILLED, RN IN FOR PAIN ASSESSMENT, NO FURTHER NEEDS AT THIS TIME
--- NOTE | 2020-08-30 21:11 | NUR ---
MEDICATIONS ADMINISTERED, IV ABX INFUSING. PT REQUESTS PRN OXY AND TYLENOL FOR 10/10 PAIN IN R FOOT. ALLEVYN COVERING WOUND, C/D/I. PT STATES PAIN WORSENED AFTER FOOT MANIPULATION BY . GRIMACING, SHAKING. PT C/O FREQUENT IV PUMP ALARMING D/T PLACEMENT IN L AC. USING URINAL AT BEDSIDE. VSS. A+O. WILL CONTINUE TO MONITOR, CALL LIGHT IN REACH
--- NOTE | 2020-08-30 22:28 | NUR ---
PT STATES PAIN HAS NOT DECREASED AFTER PRN MEDS. RATES 10/10, STILL GRIMACING, CURSING AND BEARING DOWN. MD PHONED, NEW ORDER FOR ONE TIME DOSE TORADOL RECEIVED WITH REPEAT BACK TO AFFIRM ORDER. ADMINISTERED. NO OTHER NEEDS AT THIS TIME.
--- NOTE | 2020-08-30 23:15 | NUR ---
ELEMENTARY ESL TEACHER ALERTED THIS RN THAT PT REQUESTS IV SITE TO BE MOVED DUE TO INCESSANT IV PUMP ALARMING. NEW PIV STARTED ON R FOREARM, TWO ATTEMPTS, PT TOLERATED WELL. IVF INFUSING WNL. PT REPORTS PAIN 04/06, STATES WANTS TO TRY TO SLEEP NOW. NO FURTHER REQUESTS. CALL LIGHT IN REACH.
--- NOTE | 2020-08-31 01:23 | NUR ---
ROUNDED ON PATIENT, AWAKE IN BED, REQUESTS PRN MEDS FOR 8/10 PAIN. URINAL EMPTIED. IVF INFUSING WNL. PT STATES GOT "A BIT OF SLEEP". CALM AND COOPERATIVE. DIET SODA PROVIDED. NO FURTHER NEEDS
--- NOTE | 2020-08-31 03:45 | NUR ---
ROUNDED ON PATIENT. RESTING IN BED WITH EYES CLOSED. IVF INFUSING WNL. BREATHING EVEN AND UNLABORED. CALL LIGHT IN REACH.
--- NOTE | 2020-08-31 06:05 | NUR ---
IN TO GET VITALS WITH RN, ICE WATER TOPPED OFF, NO FURTHER NEEDS AT THIS TIME
--- NOTE | 2020-08-31 06:07 | NUR ---
VITALS AND I/OS COMPLETE. IV ABX INFUSING WNL. PT REQUESTS PRN PAIN MEDICATION FOR 8/10 PAIN TO R FOOT, ADMINISTERED. VSS, A+O. REPOSITIONED FOOT IN BED. NO FURTHER REQUESTS, CALL LIGHT IN REACH
--- NOTE | 2020-08-31 07:05 | NUR ---
SHIFT REPORT FROM IRWIN FLOREZ INCLUDED: Pt needed some PRN medications for pain control throughout the evening. Pt was finally able to rest more recently this morning. Pt is voiding quantity sufficient and is a 1PA-Cane to commode, uses urinal. Pt is currently, resting in bed with eyes closed, breathing even and unlabored, table and call light within reach.
--- NOTE | 2020-08-31 08:30 | NUR ---
MED PASS + ASSESSMENT Pt assessment complete, VSS. Pt CBG was 226, 5 units insulin given poer sliding scale orders. Pt refused his protonix and tylenol, stated "I think one of those made me almost throw up yesterday. No thank you, I won't take them." Pts IV sites both patent. Pt reports nausea at this time, states "I am not gonna throw up but I feel like I could". PRN zofran given. Pt resting in bed, table and call light within reach.
--- NOTE | 2020-08-31 09:45 | NUR ---
PRN MED + ROUNDING Pt reports 8/10 increasing pain, PRN oxycodone given per orders. Pt denies nausea at this time. Pt able to take meds without difficulty. Pt in bed, working with FUEL INJECTION SERVICER, table and call light within reach.
--- NOTE | 2020-08-31 10:30 | NUR ---
ROUNDING + SALINE LOCK FOR P.T. Pt getting up to worl with Physical Therapy Karolina. Pt IV infusion stopped and disconnected, IV saline locked. Pt left with therapists. Table and call light within reach.
--- NOTE | 2020-08-31 11:25 | NUR ---
ROUNDING Pt in bed, watching something on his cell phone. Pt denies needs at this time. Pts IV infusion running as ordered. Table and call light within reach.
--- NOTE | 2020-08-31 12:00 | NUR ---
CBG + INSULIN ADMIN Pt CBG was 175, 1 unit insulin given per sliding scale orders. Pt sitting up in bed, fowlers, eating lunch, table and call light within reach.
--- NOTE | 2020-08-31 12:41 | NUR ---
Received message from Cherise at [facility], requesting updated notes for Cesar. H&P and notes from Dr. Santos and Dr. Velez faxed to [facility] for update.
--- NOTE | 2020-08-31 13:30 | NUR ---
ROUNDING Pt in bed. Pt reports 7/10 pain. Pt refuses other PRN pain meds due to them "making him feel like throwing up". Pt is unsure which meds are doing it but only wants the PRN oxycodone meds. Pt wants to wait until 1400 for pain control meds. Pt in bed, table and call light within reach.
--- NOTE | 2020-08-31 14:00 | NUR ---
MED PASS + ASSESSMENT Pt reports some SOB when lying flat, somewhat relieved by sitting up. Pts o2sats ar 100% on RA. Rasch to bedside. will order toradol to help cover pain control. Pt sitting up in bed, table and call light within reach.
--- NOTE | 2020-08-31 14:30 | NUR ---
Spoke with Cesar. He cont. to complain of pain. He is wanting to go home as he states he misses his children. He has called his nephew from out of town, to stay and help him. He is working on getting nephew to [place]. Dr. Velez will see again this afternoon.
--- NOTE | 2020-08-31 14:40 | NUR ---
MED PASS Pts vancomycin troph is completed, and new dosage of ABX brought to the floor. IV Vancomycin hung as ordered. Pt instructed to call with any swelling, pain, redness, leaking or irritation to the IV site; pt verbalized understanding. Pt also newly ordered furosemide, famotidine, and keytorolac. All given without difficulty. Pt denies nausea at this time, and reports decreasing tolerable pain. Pt in bed, sitting up to Fowlers, watching TV. Table and call light within reach.
--- NOTE | 2020-08-31 16:00 | NUR ---
SALINE LOCK FOR SHOWER Pt IV ABX and fluids stopped and IV saline locked for shower. Pt in room with Physical therapist and TRACER POWDER BLENDER. Call light within reach.
--- NOTE | 2020-08-31 16:15 | NUR ---
PT FINISHED WITH SHOWER. THIS RN REQUESTED BY PHYSICAL THERAPY TO RESTART PTS ABX INFUSIONS. VANCOMYACIN AND CEFEPIME INFUSIONS RESTARTED, EACH WITH ITS OWN PUMP AND THROUGH ITS OWN IV. PT RESTING IN BED. PT DENIES ADDITIONAL REQUESTS OR COMPLAINTS AT THIS TIME. CALL LIGHT WITHIN REACH. COMPUTER INFORMATION SCIENCE PROFESSOR AT BEDSIDE WORKING WITH PT.
--- NOTE | 2020-08-31 17:00 | NUR ---
CBG + MED PASS + DRESSING CHANGE WITH DR VELEZ Dressing changed by Dr Velez. Pts wound is healing well and iodasorb and an allevyn placed over wound. Pt should DC tomorrow according to MD. Pt feeling somewhat nauseous at this time, refuses zofran. Pts CBG was 229, 5 units insulin given per sliding scale orders. Pt in bed, denies further needs at this time, refuses antiemetics again, table and call light within reach, emesis bag in hands, no vomitting yet.
--- NOTE | 2020-08-31 19:15 | NUR ---
REPORT RECEIVED FROM TIFFANY FLOREZ. PT SITTING UP IN BED, VISITOR AT BEDSIDE. PT STATES THAT HE DOES NOT WANT TO CONTINUE TO RECEIVE ABX, HE FEELS THEY MAKE HIM FEEL SICK--HEADACHE, CHILLS, GENERAL MALAISE. HE ALSO C/O CONTINUING NAUSEA. THIS RN AND TIFFANY FLOREZ DISCUSSED W PT BENEFITS OF ABX FOR HEALING, PT SAYS HE WILL CONSIDER, MADE PLAN TO REVISIT TOPIC SOON. CALL LIGHT IN REACH.
--- NOTE | 2020-08-31 21:18 | NUR ---
IN TO GET VITALS, I&Os DONE, RN IN TO ASSESS PT, ICE WATER PROVIDED, NO FURTHER NEEDS AT THIS TIME
--- NOTE | 2020-08-31 21:30 | NUR ---
MEDICATIONS ADMINISTERED, PT COMPLIANT WITH RESUMING IV ABX AFTER DISCUSSION WITH THIS RN. CBG CHECKED, 344, 9 UNITS SS + LANTUS ADMINISTERED VERIFIED WITH TURFGRASS MANAGEMENT PROFESSOR. PT STATES PAIN IS A TOLERABLE /, MADE PLAN FOR PRN MEDICATIONS LATER IN NIGHT. BHARAT TO R FOOT C/D/I. PT SITTING UP IN BED WORKING ON LAPTOP, STATES NO NEEDS AT THIS TIME. CALL LIGHT IN REACH
--- NOTE | 2020-08-31 22:30 | NUR ---
IV ABX INFUSING. PRN PAIN MEDICATION GIVEN, PT STATES FEELING COMFORTABLE AT THE TIME AND WOULD LIKE TO TRY TO SLEEP NOW. NO FURTHER REQUESTS. COOPERATIVE WITH CARE, PLEASANT MOOD. CALL LIGHT IN REACH
--- NOTE | 2020-09-01 00:31 | NUR ---
IV VANCO COMPLETE. IVF INFUSING WNL. URINAL EMPTIED. NO OTHER NEEDS AT THIS TIME
--- NOTE | 2020-09-01 02:07 | NUR ---
ROUNDED ON PATIENT, AWAKENS TO DOOR, REQUESTS PRN TORADOL FOR 8/ HEADACHE, ADMINISTERED. URINAL EMPTIED. IVF INFUSING WNL. CALL LIGHT IN REACH
--- NOTE | 2020-09-01 03:23 | NUR ---
Call light answered, pt requests diet soda and a few crackers. Urinal emptied. Pt reports headache is 4/10, states "mostly just tired". No further requests.
--- NOTE | 2020-09-01 06:30 | NUR ---
IV ABX infusing WNL. Morning VS complete, VSS. I/O's complete. ABX infusing into L AC at lowest Y site, verified compatibility with tele pharmacy, second RN, and IV drug book. No signs of infiltration/extravasation, no swelling or redness at site. Pt compliant with therapy. Denies needs at this time. Call light in reach.
--- NOTE | 2020-09-01 07:29 | NUR ---
0700: Report received from Maria Dolores Correa. Pt sleeping at this time.
--- NOTE | 2020-09-01 08:39 | NUR ---
Pt discussed in 829 meeting with . Pt will dc to home today. Prescription and note faxed to [facility] with face sheet for crutches.
--- NOTE | 2020-09-01 08:45 | NUR ---
PT RESTING IN HIS BED AND STATES HE DID NOT SLEEP WELL AND ONLY ANSWERING SOME OF MY QUESTIONS. HE DENIES ANY PAIN OR NEW PROBLEMS AT THIS TIME. RIGHT FOOT DRESSING CDI WHICH WAS CHANGED BY DR ALLEN THIS AM. THERE IS SOME NOTED REDNESS AND SWELLING OF THE RIGHT FOOT WHICH THE PT STATES IS UNCHANGED. WILL CONTINUE TO MONITOR, SEE ASSESSMENT.
[2020-09-01] MEDS ORDERED: AMOX TR-K CLV1 EAC1 PO (10:27)
[2020-09-01] MEDS ORDERED: OXYCODONE HCL5 MG PO (10:28)
--- NOTE | 2020-09-01 10:32 | NUR ---
Pt resting in his bed with no complaints at this time.
--- NOTE | 2020-09-01 10:55 | NUR ---
DC instructions given to the pt with understanding stated.
--- NOTE | 2020-09-01 11:55 | NUR ---
Pt states he is leaving and is not going to eat prior.
--- NOTE | 2020-09-01 13:30 | NUR ---
Notified by [facility], pt's insurance will not cover bariatric crutches. He is 323# and will need bariatric. They will notify [facility] for payment. Notified by Dr. Santos pt is ready to dc. Let her know I have asked [facility] to deliver crutches to the house, they cannot dispense until they have payment.
== END 2020-09-01 12:27 | disposition home or self-care (01) | DRG 580 ==
LOC: ED 01:42 → MS 08:08
PROVIDERS: ADMIT Internal Medicine; ATTEND Internal Medicine
PROC: 0J9Q0ZZ Drainage of Right Foot Subcutaneous Tissue and Fascia, Open Approach (ICD-10-PCS; principal; 2020-08-30)
DX: L03.115 Cellulitis of right lower limb (principal); L02.611 Cutaneous abscess of right foot; Z68.41 Body mass index [BMI] 40.0-44.9, adult; B95.7 Other staphylococcus as the cause of diseases classified elsewhere; Z20.822 Contact with and (suspected) exposure to COVID-19; S91.331A Puncture wound without foreign body, right foot, initial encounter; E66.9 Obesity, unspecified; G89.29 Other chronic pain; M54.5 Low back pain; I11.9 Hypertensive heart disease without heart failure; E11.40 Type 2 diabetes mellitus with diabetic neuropathy, unspecified; Z88.5 Allergy status to narcotic agent; Z79.899 Other long term (current) drug therapy; Z79.4 Long term (current) use of insulin; Z87.891 Personal history of nicotine dependence
CPT/HCPCS: 36415; 73630; 76882; 80048; 80053; 80202; 83605; 83735; 85025; 85651; 86140; 87040; 87070; 87077; 87186; 87205; 90471; 90715; 96365; 96366; 96375; 97116; 97161; 99284-25; C9803; J0692; J1170; J1815; J1885; J1940; J2405; J3370; J7030; J7060; J7121; U0003

== ENCOUNTER 2021-05-21 23:26 | Emergency (ER) | payer OTHER ==
[~2021-05-21] VITALS: Ht 182.9 cm; Wt 147.0 kg
[~2021-05-21 23:26] MED LIST changes: +AMOX TR-K CLV1 EAC1 PO; +GLIPIZIDE XL10 MG PO; +OXYCODONE HCL5 MG PO; +VITAMIN B-121000 MCG PO; +ZESTRIL2.5 MG PO
[2021-05-22] MEDS ORDERED: OMEPRAZOLE20 MG PO (01:26)
--- NOTE | 2021-05-22 15:09 | EKG ---
[facility] [address] [facility] [place], [place] [address] Signed Normal sinus rhythm Normal ECG No previous ECGs available Confirmed by SB GODFREY DO ([id number]) on 05/22/2021 3:08:52 PM Electronically Signed By: SB GODFREY DO 05/22/21 1509 PATIENT NAME: TIMMY GONZALEZ Electrocardiogram DATE OF : 82 PHYSICIAN: SB GODFREY DO REPORT #: [id number] REPORT IS CONFIDENTIAL AND NOT TO BE RELEASED WITHOUT AUTHORIZATION
== END 2021-05-22 01:35 | disposition home or self-care (01) ==
LOC: ED 23:26
DX: K21.9 Gastro-esophageal reflux disease without esophagitis (principal); E11.9 Type 2 diabetes mellitus without complications; I10 Essential (primary) hypertension; E66.9 Obesity, unspecified; Z87.891 Personal history of nicotine dependence; Z88.5 Allergy status to narcotic agent; Z79.4 Long term (current) use of insulin; Z79.899 Other long term (current) drug therapy
CPT/HCPCS: 80053; 81001; 83735; 85025; 93005; 93010; 96374; 96375; 99283-25; C9113; J1200; J2405; J7030

== ENCOUNTER 2021-10-08 16:19 | Emergency (ER) | payer OTHER ==
[~2021-10-08] VITALS: Ht 182.9 cm; Wt 147.0 kg
[~2021-10-08 16:19] MED LIST changes: +OMEPRAZOLE20 MG PO
[2021-10-08] MEDS ORDERED: ONDANSETRON ODT8 MG PO (18:06)
--- NOTE | 2021-10-10 18:19 | EKG ---
[facility] [address] [place], [place] [address] Signed Normal sinus rhythm Normal ECG When compared with ECG of 21-MAY-2021 23:38, No significant change was found Confirmed by YULIA DICKSON MD ([id number]) on 10/10/2021 6:19:29 PM Electronically Signed By: YULIA DICKSON MD 10/10/21 1819 PATIENT NAME: TIMMY GONZALEZ Electrocardiogram DATE OF : 82 PHYSICIAN: YULIA DICKSON MD REPORT #: [id number] REPORT IS CONFIDENTIAL AND NOT TO BE RELEASED WITHOUT AUTHORIZATION
== END 2021-10-08 18:30 | disposition home or self-care (01) ==
LOC: ED 16:19
DX: J20.5 Acute bronchitis due to respiratory syncytial virus (principal); E11.9 Type 2 diabetes mellitus without complications; I10 Essential (primary) hypertension; E66.9 Obesity, unspecified; Z87.891 Personal history of nicotine dependence; Z88.5 Allergy status to narcotic agent; Z79.899 Other long term (current) drug therapy; Z79.84 Long term (current) use of oral hypoglycemic drugs; Z79.4 Long term (current) use of insulin; Z20.822 Contact with and (suspected) exposure to COVID-19
CPT/HCPCS: 36415; 71045; 80048; 85025; 93005; 93010; 96374; 99285-25; C9803; J2405; J7030; U0003